=== PATIENT | female | born 1995 | race Caucasian/White ===

== ENCOUNTER → 2018-11-08 | Outpatient (CLI) | payer OTHER ==
[2018-11-08 17:16] LABS: ALBUMIN 4.1 GM/DL (3.2-5.2); ALT/SGPT 19 U/L (12-78); BILIRUBIN,TOTAL 0.3 MG/DL (0.2-1.0); BLOOD UREA NITROGEN 15 MG/DL (7-18); CALCIUM LEVEL 8.8 MG/DL (8.5-10.1); CARBON DIOXIDE LEVEL 28 MEQ/L (21-32); CHLORIDE LEVEL 107 MEQ/L (98-107); CREATININE FOR GFR 0.77 MG/DL (0.55-1.30); FERRITIN 8 NG/ML (8-252); FREE T4 0.75 NG/DL (0.76-1.46); GLOMERULAR FILTRATION RATE > 60.0 (>60); GLUCOSE, FASTING 70 MG/DL (70-100); IRON (FE) 48 UG/DL (50-170); PERCENT SATURATION 13.4 % (13.2-45.0); POTASSIUM SERUM 4.3 MEQ/L (3.5-5.1); SODIUM LEVEL 140 MEQ/L (136-145); TOTAL IRON BINDING CAPACITY 358 UG/DL (250-450); TOTAL PROTEIN 7.2 GM/DL (6.4-8.2)
[2018-11-08 17:28] LABS: BASO # 0.1 10^3/uL (0.0-0.2); BASO % 0.7 % (0.0-1.0); EOS # 0.4 10^3/uL (0.0-0.50); EOS % 5.5 % (0.0-3.0); HEMATOCRIT 43.4 % (36.0-47.0); HEMOGLOBIN 13.9 g/dl (12.0-15.5); LYMPH # 1.7 10^3/uL (1.5-6.5); LYMPH % 23.5 % (24.0-44.0); MEAN CORPUSCULAR HEMOGLOBIN 30.2 pg (27.0-33.0); MEAN CORPUSCULAR VOLUME 94.3 fl (80.0-96.0); MONO # 0.5 10^3/uL (0.0-0.8); MONO % 6.4 % (0.0-5.0); NEUTROPHILS # 4.7 10^3/uL (1.8-7.7); NEUTROPHILS % 63.6 % (36.0-66.0); PLATELET COUNT, AUTOMATED 269 10^3/uL (150-450); WHITE BLOOD COUNT 7.3 10^3/uL (4.0-10.0)
[2018-11-09 14:09] LABS: VITAMIN B12 LEVEL 1239 PG/ML (247-911)
== END ==
LOC: M LRY 11:01
PROVIDERS: ATTEND Physician Assistant
DX: D68.0 Von Willebrand disease (principal)

== ENCOUNTER → 2018-11-11 | Outpatient (REF) | payer OTHER | LOC: M LAB REF 17:04 | PROVIDERS: ATTEND Physician Assistant | DX: N30.00 Acute cystitis without hematuria (principal) ==